=== PATIENT | female | born 1990 | race Caucasian/White ===

== ENCOUNTER 2020-04-14 15:44 | Emergency (ER) | payer OTHER ==
[~2020-04-14] VITALS: Ht 167.6 cm; Wt 65.8 kg
[2020-04-14] MEDS ORDERED: KETOROLAC TROMETHAMINE INJ 30 MG/ML VIAL ONE (16:47)
[2020-04-14] MEDS: IV NS 0.9% 1,000 ML BAG IV ONE (16:50)
--- NOTE | 2020-04-14 16:52 | NUR ---
c/o lower back pain x 9 days radiating to chest and arm 6/10 pain scale. PT AAOX4, VSS. RR EVEN & UNLABORED. DENIES DIZZINESS, N/V, WEAKNESS AT THIS TIME. PT SEEN & EVAL'D BY OZZIE ZAPIEN. PLACED ON TEST AUTOMATION ARCHITECT, SR. AWAITING PREG TEST. WILL CONT TO MONITOR.
[2020-04-14 17:03] LABS: BASOPHILS # (AUTO) 0.1 /CMM (0.0-0.2); BASOPHILS % (AUTO) 0.6 % (0.0-2.0); EOSINOPHILS % (AUTO) 0.5 % (0.0-6.0); HEMATOCRIT 42 % (33-45); HEMOGLOBIN 13.7 g/dL (11.5-14.8); LYMPHOCYTES % (AUTO) 22.1 % (20.0-44.0); MEAN CORPUSCULAR HGB CONC 32 g/dl (31.0-36.0); MEAN CORPUSCULAR VOLUME 82 fL (82-100); MONOCYTES # (AUTO) 0.5 /CMM (0.1-1.30); MONOCYTES % (AUTO) 5.2 % (2.0-12.0); NEUTROPHILS # (AUTO) 6.3 /CMM (1.8-8.9); NEUTROPHILS % (AUTO) 71.6 % (43.0-81.0); PLATELET COUNT (AUTO) 311 /CMM (150-450); RED BLOOD CELL COUNT(AUTO) 5.13 MIL/uL (4.0-5.2); WHITE BLOOD COUNT (AUTO) 8.8 K/uL (4.3-11.0)
[2020-04-14 17:05] LABS: ALANINE AMINOTRANSFERASE 31 U/L (12-78); ALBUMIN 3.5 g/dL (3.4-5.0); ALKALINE PHOSPHATASE 110 U/L (46-116); ASPARTATE AMINOTRANSFERASE 15 U/L (15-37); BILIRUBIN,DIRECT 0.1 mg/dL (0.0-0.2); BILIRUBIN,TOTAL 0.3 mg/dL (0.2-1.0); CALCIUM, SERUM 8.4 mg/dL (8.5-10.1); CARBON DIOXIDE 25 mmol/L (21-32); CHLORIDE 104 mmol/L (98-107); CREATININE 0.8 mg/dL (0.6-1.3); GLUCOSE 91 mg/dL (74-106); SODIUM SERUM 139 mmol/L (136-145); UREA NITROGEN, BLOOD 10 mg/dL (7-18)
[2020-04-14 17:40] LABS: APPEARANCE,URINE Clear (CLEAR); BILIRUBIN,URINE Negative (NEGATIVE); BLOOD, URINE Moderate Ery/uL (NEGATIVE); COLOR,URINE Yellow (YELLOW); KETONES,URINE Negative (NEGATIVE); LEUKOCYTE ESTERASE ,URINE Trace (NEGATIVE); NITRITE, URINE Negative (NEGATIVE); PROTEIN,URINE Negative (NEGATIVE); UGLUCOSE Negative (NEGATIVE); UROBILINOGEN,URINE 0.2 EU/dL (0.2)
[2020-04-14] MEDS: KETOROLAC TROMETHAMINE INJ 30 MG/ML VIAL IV ONE (17:56)
[2020-04-14 17:57] LABS: BACTERIA,URINE Few /HPF (None Seen); RBC,URINE 21-50 /HPF (0-2); SQUAMOUS EPITHELIAL CELL,UR Few /HPF (None Seen)
--- NOTE | 2020-04-14 18:18 | NUR ---
PT STS MID BACK PAIN 08/26 & MAL WELL. DENIES CP, SOB, DIZZINESS, N/V AT THIS TIME. PT TO CT VIA ELADIO.
[2020-04-14] MEDS ORDERED: CT SWABBABLE VALVE TRANS SET 1 EA INFUS.SET MC ONE (18:21)
[2020-04-14] MEDS ORDERED: IOHEXOL-350 100 ML VIAL IV ONE (18:21)
[2020-04-14] MEDS ORDERED: IV NS 0.9% 250 ML IV ONE (18:21)
--- NOTE | 2020-04-14 19:45 | NUR ---
[facility], [place]
--- NOTE | 2020-04-14 20:41 | NUR ---
IV removed. Catheter intact and site benign. Pressure and 4x4 applied to site. No bleeding noted. Patient discharged to home in stable condition. Written and verbal after care instructions given. Patient verbalizes understanding of instruction. ambulatory with a steady gait noted. pt aaox4 no acute distress noted, resp even and unlabored. incentive spirometer provided by rt as well as pt teaching on how to use it. pt verbalize understanding.
[2020-04-14 20:43] VITALS: BP 139/86
== END 2020-04-14 21:04 | disposition home or self-care (01) ==
LOC: ER 15:44
DX: R07.89 Other chest pain (principal); M54.5 Low back pain; F41.9 Anxiety disorder, unspecified
CPT/HCPCS: 36415; 71045; 71275; 80048; 80076; 81001; 84484 ×2; 84703; 85025; 85378; 93005 ×2; 96361; 96374; 99285; J1885; J7030; J7050; Q9967; 81000-TC

== ENCOUNTER 2022-06-07 11:00 | Emergency (ER) | payer OTHER ==
[~2022-06-07] VITALS: Ht 165.1 cm; Wt 108.9 kg
[2022-06-07 11:06] VITALS: BP 132/70
[2022-06-07] MEDS ORDERED: AMOX875T2 PO (11:59)
--- NOTE | 2022-06-07 12:09 | NUR ---
COVID SWAB, STREP SPECIMEN COLLECTED. LAB CALLED FOR ADULT SERVICES LIBRARIAN.
--- NOTE | 2022-06-07 12:10 | NUR ---
Patient discharged to home in stable condition. Written and verbal after care instructions given. Patient verbalizes understanding of instruction.
== END 2022-06-07 12:11 | disposition home or self-care (01) ==
LOC: ER 11:07
DX: J02.0 Streptococcal pharyngitis (principal); M79.10 Myalgia, unspecified site; Z20.822 Contact with and (suspected) exposure to COVID-19
CPT/HCPCS: 99283; 87426; 87880; C9803; 86403-TC

== ENCOUNTER 2022-06-10 18:20 | Emergency (ER) | payer OTHER ==
[~2022-06-10] VITALS: Ht 165.1 cm; Wt 108.9 kg
[~2022-06-10 18:20] MED LIST: AMOX875T2 PO
[2022-06-10 19:13] VITALS: BP 105/80
[2022-06-10] MEDS ORDERED: DEXAMETHASONE SOD PHOSPHATE 10 MG/ML VIAL IM ONE (23:00)
[2022-06-10] MEDS ORDERED: KETOROLAC TROMETHAMINE INJ 30 MG/ML VIAL IM ONE (23:00)
[2022-06-10] MEDS ORDERED: LIDOCAINE VISCOUS 2% UD 15 ML UDC MM ONE (23:00)
[2022-06-10] MEDS ORDERED: LIDOCAINE VISCOUS 2% UD 15 ML UDC ONE (23:04)
[2022-06-10] MEDS ORDERED: DEXAMETHASONE SOD PHOSPHATE 10 MG/ML VIAL ONE (23:04)
[2022-06-10] MEDS ORDERED: KETOROLAC TROMETHAMINE INJ 30 MG/ML VIAL ONE (23:05)
[2022-06-10] MEDS ORDERED: PRED20TA PO (23:12)
[2022-06-10] MEDS ORDERED: BENZ1LOZ58 PO (23:23)
--- NOTE | 2022-06-10 23:51 | NUR ---
Patient discharged to home in stable condition. Written and verbal after care instructions given. Patient verbalizes understanding of instruction.
[2022-06-11 00:09] LABS: MONOTEST NEGATIVE (NEGATIVE)
== END 2022-06-10 23:51 | disposition home or self-care (01) ==
LOC: ER 18:24
DX: J02.9 Acute pharyngitis, unspecified (principal); F41.9 Anxiety disorder, unspecified
CPT/HCPCS: 99284; 96372; 86308; 36415; J1100; J1885

== ENCOUNTER 2022-12-02 18:09 | Inpatient (IN) | payer OTHER ==
[~2022-12-02] VITALS: Ht 165.1 cm; Wt 112.3 kg
[~2022-12-02 18:09] MED LIST changes: +BENZ1LOZ58 PO; +PRED20TA PO
--- NOTE | 2022-12-02 18:30 | NUR ---
BIBSELF C/O HYPOTENSION R/T VAGINAL BLEEDING X3 WEEKS NOW NEAR SYNCOPAL EPISODE HAPPENED DURING TRIAGE. IN BED. CHANGED TO HOSPITAL GOWN.
--- NOTE | 2022-12-02 18:31 | NUR ---
BIBSELF C/O VAGINAL BLEEDING X3 WKS NOW, RECENT HGB. LEVEL WAS 7 FROM PCP LAB THIS MORNING. NEAR SYNCOPAL EPISODE LAST MONDAY AND TODAY WHILE DOING TRIAGE. AWAITING FOR EVAL. NOTIFIED.
--- NOTE | 2022-12-02 18:39 | NUR ---
AT BED SIDE FOR EVAL
[2022-12-02] MEDS ORDERED: IV NS 0.9% 1,000 ML BAG IV ONE (19:00)
[2022-12-02 19:08] LABS: CALCIUM, SERUM 8.8 mg/dL (8.5-10.1); CREATININE 0.8 mg/dL (0.6-1.3); POTASSIUM 3.8 mmol/L (3.5-5.1)
[2022-12-02 19:13] LABS: ALBUMIN 3.2 g/dL (3.4-5.0); BASOPHILS # (AUTO) 0.1 K/uL (0.0-0.2); BASOPHILS % (AUTO) 0.5 % (0.0-2.0); BILIRUBIN,TOTAL 0.1 mg/dL (0.2-1.0); EOSINOPHILS % (AUTO) 1.1 % (0.0-6.0); HEMATOCRIT 21 % (33-45); LYMPHOCYTES # (AUTO) 3.8 K/uL (0.8-4.8); LYMPHOCYTES % (AUTO) 29.2 % (20.0-44.0); MEAN CORPUSCULAR HGB CONC 31 g/dl (31.0-36.0); MEAN CORPUSCULAR VOLUME 79 fL (82-100); MONOCYTES # (AUTO) 0.8 K/uL (0.1-1.30); MONOCYTES % (AUTO) 6.4 % (2.0-12.0); NEUTROPHILS # (AUTO) 8.1 K/uL (1.8-8.9); NEUTROPHILS % (AUTO) 62.8 % (43.0-81.0); PLATELET COUNT (AUTO) 420 K/uL (150-450)
[2022-12-02 19:21] LABS: HEMOGLOBIN 6.6 g/dL (11.5-14.8)
--- NOTE | 2022-12-02 19:23 | NUR ---
CRITICAL LAB: HGB 6.[address] TERESA DENTON AWARE
--- NOTE | 2022-12-02 19:28 | NUR ---
20GA TO RT AC NOTED
--- NOTE | 2022-12-02 19:30 | NUR ---
PT ASSISTED TO BATHROOM FOR URINE SAMPLE COLLECTION
--- NOTE | 2022-12-02 19:40 | NUR ---
URINE COLLECTED, SENT TO LAB
--- NOTE | 2022-12-02 19:45 | NUR ---
MOVE SHEET SUBMITTED
--- NOTE | 2022-12-02 19:55 | NUR ---
COVID SWAB COLLECTED, SENT TO LAB
--- NOTE | 2022-12-02 20:16 | NUR ---
DR TERESA DENTON ON PHONE CALL WITH DR SOO DENTON FOR PEER TO PEER
--- NOTE | 2022-12-02 21:08 | NUR ---
CALLED [facility]/R&D LAB TECHNICIAN ANEL FOR ADMISSION
[2022-12-02] MEDS ORDERED: MORPHINE SULFATE INJ 2 MG/ML DISP.SYRIN IV PRN (21:30)
[2022-12-02] MEDS ORDERED: ONDANSETRON HCL/PF 4 MG/2 ML VIAL IVP PRN (21:30)
--- NOTE | 2022-12-02 21:50 | NUR ---
Leny garza in [facility] - 12/02/22 at 2231 by GIORGIO [id number] [phone]
[2022-12-02 21:57] LABS: BILIRUBIN,URINE NEGATIVE (NEGATIVE); COLOR,URINE YELLOW (YELLOW); LEUKOCYTE ESTERASE ,URINE NEGATIVE (NEGATIVE); NITRITE, URINE NEGATIVE (NEGATIVE); PROTEIN,URINE 2+ mg/dl (NEGATIVE); UGLUCOSE NEGATIVE (NEGATIVE); UROBILINOGEN,URINE 0.2 EU/dL (0.2)
[2022-12-02 22:22] LABS: BACTERIA,URINE None seen /HPF (None Seen); RBC,URINE 51-80 /HPF (0-2); SQUAMOUS EPITHELIAL CELL,UR 0-2 /HPF (None Seen); WBC,URINE 0-2 /HPF (0-3)
[2022-12-02 22:25] LABS: IRON, SERUM 144 ug/dl (50-175); TOTAL IRON BINDING CAPACITY 324 ug/dl (250-450)
--- NOTE | 2022-12-02 22:25 | NUR ---
Consent signed by patient agreeing to administration of blood. Patient or responsible democrat informed of potential complications associated with blood transfusion. Information on unit of blood checked against patient wristband at bedside by two nurses. All information matches. Patient made aware of need to notify nurse at once if begins to experience itching, shortness of breath, flushing, feeling of impending doom, or other symptoms not previously present. Transfusion started at 2225. Vitals [id number]-[id number]/71-99 O2sat on RA, with no c/o pain stated by patient.
--- NOTE | 2022-12-02 22:25 | NUR ---
DR. TAM AT BEDSIDE
[2022-12-02 22:31] LABS: BAND % (MANUAL) 1 % (0.0-5.0); LYMPHOCYTES % (MANUAL) 24 % (16-48); MONOCYTES % (MANUAL) 2 % (0-11.0); NEUTROPHILS % (MANUAL) 73 (42-76)
[2022-12-02 22:38] LABS: FERRITIN 12 ng/mL (8-388)
--- NOTE | 2022-12-02 22:52 | NUR ---
REPORT GIVEN TO CINDY KENNEDY
--- NOTE | 2022-12-02 23:25 | NUR ---
PT TRANSPORTED TO [facility] ACCOMPANIED BY RN AND EMT
[2022-12-02 23:30] VITALS: BP 126/77
[2022-12-02 23:35] VITALS: BP 126/77
--- NOTE | 2022-12-03 00:37 | NUR ---
MS MASSIMO INITIAL NOTES Admit pt from ER via gursanjay accompanied by ER nurse and tech. DX of Anemia. Pt is alert oriented x4 ,able to ambulate to the bathroom with some assistance . Pt states that She's having bleeding for 3 weeks and seen by her FISH PROCESSING SUPERVISOR doctor and she started the Progesterone and iron pills. But she started feeling weak and fatigue thats why she decided to go to ER . Denies any pain or any discomfort. Pt on blood transfusion at this time , no adverse reaction noted. vital signs as FF::. BP 126/77, PULSE 105, RESP 20 TEMP 97.7 AND O2 sat. 100%. Educate pt regarding her blood transfusion and pt understood well. Kept her warm and comfortable at all times. Place call light at reach. will continue monitoring.
--- NOTE | 2022-12-03 01:30 | NUR ---
MS MASSIMO NOTES Blood transfusion done , no adverse reaction noted. Pt denies any pain or any discomfort. Vital signs as ff: BP 119/70, PULSE 110, RESP> 20, TEMP. 98.2 and O2 sat 100%. Kept her warm and comfortable at all times. will continue monitoring. Blood test for H/H will be at 2:30 one hour after blood transfusion .
[2022-12-03 04:20] LABS: BILIRUBIN,TOTAL 0.3 mg/dL (0.2-1.0); CALCIUM, SERUM 8.8 mg/dL (8.5-10.1); CREATININE 0.8 mg/dL (0.6-1.3); MAGNESIUM 2.2 mg/dL (1.8-2.4); POTASSIUM 3.8 mmol/L (3.5-5.1); TOTAL PROTEIN, SERUM 6.5 g/dL (6.4-8.2)
[2022-12-03 04:21] LABS: BASOPHILS % (AUTO) 0.4 % (0.0-2.0); HEMATOCRIT 25 % (33-45); HEMOGLOBIN 7.5 g/dL (11.5-14.8); LYMPHOCYTES # (AUTO) 4.2 K/uL (0.8-4.8); LYMPHOCYTES % (AUTO) 31.4 % (20.0-44.0); MEAN CORPUSCULAR HGB CONC 31 g/dl (31.0-36.0); MEAN CORPUSCULAR VOLUME 80 fL (82-100); MONOCYTES # (AUTO) 0.8 K/uL (0.1-1.30); MONOCYTES % (AUTO) 5.9 % (2.0-12.0); NEUTROPHILS # (AUTO) 8.1 K/uL (1.8-8.9); NEUTROPHILS % (AUTO) 61.3 % (43.0-81.0); PLATELET COUNT (AUTO) 380 K/uL (150-450); RED BLOOD CELL COUNT(AUTO) 3.08 MIL/uL (4.0-5.2); WHITE BLOOD COUNT (AUTO) 13.3 K/uL (4.3-11.0)
[2022-12-03 04:48] LABS: BAND % (MANUAL) 1 % (0.0-5.0); EOSINOPHILS % (MANUAL) 3 % (0-4); LYMPHOCYTES % (MANUAL) 30 % (16-48); MONOCYTES % (MANUAL) 4 % (0-11.0); NEUTROPHILS % (MANUAL) 62 (42-76)
[2022-12-03] MEDS: IV NS 0.9% 1,000 ML IV SCH ×2 (04:48→12:06)
--- NOTE | 2022-12-03 05:04 | NUR ---
MS MASSIMO NOTES Got the h/h result and came out 7.. No blood transfusion due at this time. will continue monitoring. Place call light at reach
--- NOTE | 2022-12-03 07:02 | NUR ---
MS SKIDDER LOADER CLOSING NOTES PT IS AWAKE SITTING ON HER BED WITH THE BF AT THE BEDSIDE FOR SUPPORT. PT STABLE AFTER BLOOD TRANSFUSION GIVEN , BUT PER PT HER MENSTRUAL PERIOD STARTED AGAIN. DENIES ANY PAIN OR ANY DISCOMFORT. IVF NS AT 75ML/HR INFUSING AT THIS TIME. NO REDNESS OR INFILTRATION NOTED. KEPT HER WARM AND COMFORTABLE AT ALL TIMES. PLACE CALL LIGHT AT REACH. WILL ENDORSE TO AM NURSE FOR CONTINUITY OF CARE.
--- NOTE | 2022-12-03 07:30 | NUR ---
RN MS NOTES PT IN BED, AWAKE, ALERT AND ORIENTED, NO COMPLAINT OF PAIN OR ANY DISCOMFORT AT THIS TIME, BREATHING PATTERN NORMAL, IV FLUIDS INFUSING WELL, CALL LIGHT WITHIN REACH, NEEDS ATTENDED.
[2022-12-03 08:00] VITALS: BP 115/54
[2022-12-03 11:20] LABS: HEMOGLOBIN 7.6 g/dL (11.5-14.8)
[2022-12-03] MEDS ORDERED: SERT25TA5 PO (12:12)
[2022-12-03] MEDS ORDERED: MEDR10TA10 PO (12:12)
[2022-12-03] MEDS ORDERED: NORE-213 PO (12:12)
[2022-12-03 12:52] LABS: IRON, SERUM 75 ug/dl (50-175); TOTAL IRON BINDING CAPACITY 330 ug/dl (250-450)
--- NOTE | 2022-12-03 13:29 | NUR ---
RN MS NOTES PT IN BED, DENIES PAIN, NOT IN DISTRESS, REPORTS SHE SHTILL HAS MODERATE VAGINAL BLEEDING, PT SEEN AND EXAMINED BY DR. PAN, PLAN OF CARE DISCUSSED WITH PT, VERBALIZED UNDERSTANDING.
[2022-12-03] MEDS: SOD FERRIC GLUC 125 MG in IV NS 0.9% 100 ML IV SCH (15:29)
[2022-12-03] MEDS: ACETAMINOPHEN 325 MG TABLET PO PRN (15:31)
[2022-12-03 16:00] VITALS: BP 120/73
[2022-12-03 18:11] LABS: HEMOGLOBIN 8.6 g/dL (11.5-14.8)
--- NOTE | 2022-12-03 18:20 | NUR ---
RN MS NOTES PT IN BED, AWAKE, ALERT AND ORIENTED, EATING DINNER, STILL REPORTS MODERATE BLEEDING, COMPLAINED OF HEADACHE, TYLENOL GIVEN, VERBALIZED RELIEF, STARTED ON IV IRON, SCHEDULED FOR H/H CHECK AT 1900, PT INFORMED, CALL LIGHT WITHIN REACH.
--- NOTE | 2022-12-03 19:30 | NUR ---
MS RN OPENING NOTE RECEIVED PATIENT FROM AM NURSE; PATIENT IS A/O X 4, ABLE TO MAKE NEEDS KNOWN, WITH RELATIVES AT BEDSIDE; STABLE ON ROOM AIR, BREATHING EVENLY AND NO S/S OF DISTRESS NOTED; WITH IV ACCESS AT RAC G#20 SALINE LOCK; NO COMPLAINTS OF PAIN AND DISCOMFORT AT THIS TIME; ENCOURAGED VERBALIZATION OF NEEDS; SAFETY MEASURES IMPLEMENTED, BED LOCKED IN LOWEST POSITION, SIDE RAILS UP X 2, CALL LIGHT AND TABLE WITHIN REACH; WILL CONTINUE TO MONITOR THROUGHOUT SHIFT
[2022-12-03 20:00] VITALS: BP 122/73
[2022-12-04] MEDS: IV NS 0.9% 1,000 ML IV SCH ×2 (00:31→15:49)
[2022-12-04 03:19] LABS: BASOPHILS % (AUTO) 0.3 % (0.0-2.0); EOSINOPHILS % (AUTO) 1.4 % (0.0-6.0); HEMATOCRIT 23 % (33-45); HEMOGLOBIN 7.4 g/dL (11.5-14.8); LYMPHOCYTES # (AUTO) 3.5 K/uL (0.8-4.8); LYMPHOCYTES % (AUTO) 32.4 % (20.0-44.0); MEAN CORPUSCULAR HGB CONC 32 g/dl (31.0-36.0); MEAN CORPUSCULAR VOLUME 80 fL (82-100); MONOCYTES # (AUTO) 0.7 K/uL (0.1-1.30); MONOCYTES % (AUTO) 6.3 % (2.0-12.0); NEUTROPHILS # (AUTO) 6.5 K/uL (1.8-8.9); NEUTROPHILS % (AUTO) 59.6 % (43.0-81.0); PLATELET COUNT (AUTO) 333 K/uL (150-450); RED BLOOD CELL COUNT(AUTO) 2.88 MIL/uL (4.0-5.2); WHITE BLOOD COUNT (AUTO) 10.9 K/uL (4.3-11.0)
[2022-12-04 03:35] LABS: ALBUMIN 2.8 g/dL (3.4-5.0); BILIRUBIN,TOTAL 0.2 mg/dL (0.2-1.0); CALCIUM, SERUM 8.6 mg/dL (8.5-10.1); CREATININE 0.8 mg/dL (0.6-1.3); MAGNESIUM 2.2 mg/dL (1.8-2.4); PHOSPHORUS 4.5 mg/dL (2.5-4.9); POTASSIUM 4.6 mmol/L (3.5-5.1); TOTAL PROTEIN, SERUM 6.2 g/dL (6.4-8.2)
[2022-12-04] MEDS: ACETAMINOPHEN 325 MG TABLET PO PRN (05:15)
--- NOTE | 2022-12-04 05:45 | NUR ---
MS RN NOTE PATIENT COMPLAINED OF MILD HEADACHE, ASKED FOR TYLENOL; ADMINISTERED TYLENOL 650MG PRN ORDERED; PATIENT TOLERATED WELL AND WAS ABLE TO GO BACK TO SLEEP
--- NOTE | 2022-12-04 06:53 | NUR ---
MS RN CLOSING NOTE PATIENT RESTING IN BED, A/O X 4, ABLE TO MAKE NEEDS KNOWN; STABLE ON ROOM AIR, BREATHING EVENLY AND NO S/S OF DISTRESS NOTED; WITH IV ACCESS AT RAC G#20 RUNNING WITH NORMAL SALINE AT 75 ML/HR; NO COMPLAINTS OF PAIN AND DISCOMFORT AT THIS TIME; ADMINISTERED MEDICATIONS PRESCRIBED; PATIENT'S NEEDS ATTENDED; MONITORED PATIENT ACCORDINGLY; SAFETY MEASURES IMPLEMENTED, BED LOCKED IN LOWEST POSITION, SIDE RAILS UP X 2, CALL LIGHT AND TABLE WITHIN REACH; WILL ENDORSE TO AM NURSE FOR KEITH.
[2022-12-04 07:00] VITALS: BP 104/62
--- NOTE | 2022-12-04 07:20 | NUR ---
MS RN OPENING NOTE RECEIVED PATIENT IN BED, AWAKE; PATIENT IS A/O X 4, ABLE TO MAKE NEEDS KNOWN. NO SIGNS OF ACUTE DISTRESS NOTED. ON ROOM AIR, TOLERATING WELL; NO SOB NOTED, BREATHING EVEN AND UNLABORED. WITH IV ACCESS AT [facility] G#20 SALINE LOCK. DENIES ANY PAIN AND DISCOMFORT AT THIS TIME. SAFETY MEASURES IN PLACE. BED IN LOW AND LOCKED POSITION. SIDE RAILS UP X2; CALL LIGHT AND TABLE WITHIN EASY REACH. WILL CONTINUE WITH PLAN OF CARE.
[2022-12-04 11:23] LABS: HEMOGLOBIN 7.8 g/dL (11.5-14.8)
[2022-12-04] MEDS: SOD FERRIC GLUC 125 MG in IV NS 0.9% 100 ML IV SCH (15:47)
[2022-12-04 16:00] VITALS: BP 117/69
[2022-12-04 19:16] LABS: HEMOGLOBIN 8.2 g/dL (11.5-14.8)
--- NOTE | 2022-12-04 19:26 | NUR ---
MS RN CLOSING NOTES PATIENT IN BED, AWAKE, WITH FRIENDS AT BEDSIDE; PATIENT IS A/O X 4, ABLE TO MAKE NEEDS KNOWN. NO SIGNS OF ACUTE DISTRESS NOTED. ON ROOM AIR, TOLERATIED WELL; NO SOB NOTED, BREATHING EVEN AND UNLABORED. IV ACCESS REMOVED BECAUSE PATIENT WILL GO HOME AT 2000H. SAFETY MEASURES IMPLEMENTED. BED IN LOW AND LOCKED POSITION. SIDE RAILS UP X2; CALL LIGHT AND TABLE WITHIN EASY REACH. WILL ENDORSE TO SKI GUIDE NURSE FOR KEITH.
--- NOTE | 2022-12-04 20:02 | NUR ---
MS COMMUNICATION STUDIES PROFESSOR NOTE PATIENT LABS RESULTED HGB NOW 8.2. PATIENT DISCHARGED IN STABLE CONDITION, PATIENT STABLE ON RA, NO S/S OF DISTRESS OR SOB NOTED, BREATHING EVEN AND UNLABORED. DISCHARGE PAPERS GIVEN AND SIGNED BY PATIENT, EXPLAINED TO F/U WITH OBGYN TOMORROW, MEDICATIONS AND TO RETURN TO ER IF BLEEDING IS HEAVIER, FEELING LIGHTHEADED, WEAK, PALPITATIONS, ETC. RIGHT HAND IV ACCESS REMOVED AND ID BANDS WELL. ALL BELONGINGS TAKEN WITH PATIENT. THIS RN WALKED PATIENT DOWN TO LOBBY WITH FRIENDS AND TAKEN BY PRIVATE CAR.
== END 2022-12-04 20:00 | disposition home or self-care (01) | DRG 532 ==
LOC: ER 18:15 → TELE 22:31 → MED 12-03 02:16
PROVIDERS: ADMIT Internal Medicine; ATTEND Internal Medicine
PROC: 30233N1 Transfusion of Nonautologous Red Blood Cells into Peripheral Vein, Percutaneous Approach (ICD-10-PCS; principal; 2022-12-02)
DX: N93.9 Abnormal uterine and vaginal bleeding, unspecified (principal); D62 Acute posthemorrhagic anemia; Z20.822 Contact with and (suspected) exposure to COVID-19; F41.9 Anxiety disorder, unspecified; Z79.899 Other long term (current) drug therapy; D50.9 Iron deficiency anemia, unspecified; F32.A Depression, unspecified; Z87.42 Personal history of other diseases of the female genital tract
CPT/HCPCS: 36415; 80048-TC; 80053-TC; 80076-TC; 81001; 82728-TC; 82962-TC; 83540-TC; 83605-TC; 83690-TC; 83735-TC; 84100-TC; 84703-TC; 85025-TC; 85027-TC; 85730-TC; 86850-TC; 87081-TC; 87086-TC; A4223; C9803; G0378; J2916; J7030; J7050; P9016